=== PATIENT | female | born 1970 | race Two or more races ===

== ENCOUNTER 2019-02-03 10:37 | Outpatient (CLI) | payer OTHER ==
[~2019-02-03 10:37] MED LIST: BISOPROLOL-HCT1 EAC1 PO; CIPRO500 MG/5 M PO; ULTRACET PO; ZANTAC300 MG PO
== END 2019-02-03 12:55 | disposition home or self-care (01) ==
LOC: SONOGRAMA 10:37
DX: N93.8 Other specified abnormal uterine and vaginal bleeding (principal); R07.2 Precordial pain

== ENCOUNTER 2019-02-04 08:26 | Outpatient (CLI) | payer OTHER | END 2019-02-04 09:28 | disposition home or self-care (01) | LOC: LAB 08:26 | DX: N83.292 Other ovarian cyst, left side (principal); N93.8 Other specified abnormal uterine and vaginal bleeding; E78.49 Other hyperlipidemia; E11.00 Type 2 diabetes mellitus with hyperosmolarity without nonketotic hyperglycemic-hyperosmolar coma (NKHHC) ==